=== PATIENT | male | born 1960 | race Caucasian/White ===

== ENCOUNTER 2019-02-19 16:34 | Emergency (ER) | payer SELFPAY ==
[~2019-02-19] VITALS: Ht 190.5 cm; Wt 91.6 kg
[2019-02-19 16:39] VITALS: BP 110/68
[2019-02-19 18:25] VITALS: BP 121/80
== END 2019-02-19 18:25 | disposition home or self-care (01) ==
LOC: MED 16:34
DX: T40.1X1A Poisoning by heroin, accidental (unintentional), initial encounter (principal); Y92.89 Other specified places as the place of occurrence of the external cause
CPT/HCPCS: 99283

== ENCOUNTER 2019-05-22 13:00 | Emergency (ER) | payer MEDICAID ==
[~2019-05-22] VITALS: Ht 190.5 cm; Wt 86.2 kg
[2019-05-22 13:05] VITALS: BP 128/103
--- NOTE | 2019-05-22 13:05 | NUR ---
dr lara at bedside
--- NOTE | 2019-05-22 13:06 | NUR ---
BIBA C/O HEROIN OVERDOSE X TODAY. PER EMS, PT WAS FOUND IN ALLEY, ALERT AND AWAKE. PT ADMITS TO TAKING UNKNOWN AMOUNT OF HEROIN AT APPROX 1200. AT THIS TIME, PT BREATHING SPONTANEOUSLY, LUNGS DIMINISHED. GCS 15. PT DIAPHORETIC AND TACHY AT 124. 85% RA. PT STARTED ON 4 L NC. NOW AT 96%. PT ANSWERING QUESTIONS APPROPRIATELY, CALM IN BEHAVIOR. NO COMPLAINS OF SOB, CP, DIZZINESS OR PAIN IN GENERAL. PATIENT STATES HE WAS JUST RELEASED FROM RETIREMENT THIS AM
--- NOTE | 2019-05-22 13:07 | NUR ---
NEURO INTACT- PUPILS PERRL. 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 SPEECH CLEAR AND FULL. GCS 15. AMBULATORY.
[2019-05-22] MEDS ORDERED: NACL 0.9% 1,000 ML IV ONE (13:10)
[2019-05-22] MEDS ORDERED: ALBUTEROL SULFATE/IPRATROPIU 3 ML SOL IH ONE (13:10)
--- NOTE | 2019-05-22 13:15 | NUR ---
rt at bedside for breathing tx
--- NOTE | 2019-05-22 13:20 | NUR ---
iv inserted and labs drawn bedside
--- NOTE | 2019-05-22 13:22 | NUR ---
emt at bedside for ekg
[2019-05-22 13:25] LABS: BASOPHILS % (AUTO) 0.3 % (0.0-2.0); EOSINOPHILS % (AUTO) 0.2 % (0.0-4.0); HEMATOCRIT 45.2 % (36-52); HEMOGLOBIN 15.2 g/dL (12.0-18.0); LYMPHOCYTES # (AUTO) 2.3 K/uL (2.0-11.5); LYMPHOCYTES % (AUTO) 24.8 % (20.5-51.1); MEAN CORPUSCULAR HEMOGLOBIN 31 pg (27-31); MEAN CORPUSCULAR HGB CONC 34 g/dL (33-37); MEAN CORPUSCULAR VOLUME 92.5 fL (80-94); MONOCYTES # (AUTO) 0.6 K/uL (0.8-1.0); MONOCYTES % (AUTO) 6.1 % (1.7-9.3); NEUTROPHILS # (AUTO) 6.4 K/uL (1.8-7.7); NEUTROPHILS % (AUTO) 68.6 % (42.2-75.2); PLATELET COUNT (AUTO) 260 K/uL (140-450); RED BLOOD CELL COUNT(AUTO) 4.89 MIL/uL (4.20-6.10); RED CELL DISTRIBUTION WIDTH 13.8 % (11.6-13.7); WHITE BLOOD COUNT (AUTO) 9.3 K/uL (4.8-10.8)
--- NOTE | 2019-05-22 13:32 | NUR ---
XRAY AT BEDSIDE
--- NOTE | 2019-05-22 13:38 | NUR ---
CALLED POISON CONTROL AND GAVE REPORT, SHE SUGGESTED TO OBTAIN URINE DRUG SCREEN, MONITOR VS, ATUL ROE WILL GIVE PT SUBSTANCE ABUSE HOTLINE [phone]
--- NOTE | 2019-05-22 13:40 | NUR ---
PT REMOVED IV LINE, CATHETER INTACT. BLEEDING CONTROLLED.
--- NOTE | 2019-05-22 13:45 | NUR ---
PT EXPRESSING DESIRE TO LEAVE. INFORMED PT OF RISKS OF LEAVING AMA. PT STILL INSITING, STATING "I'M FINE I KNOW MYSELF I DO THIS A LOT I'M OKAY" DR ZEPEDA MADE AWARE.
--- NOTE | 2019-05-22 13:52 | NUR ---
SPOKE TO PT WITH DR ZEPEDA, PT STILL EXPRESSING DESIRE TO LEAVE. ALERT TO NAME, BIRTHDAY, PLACE, AND EVENT.
[2019-05-22 14:00] LABS: ANION GAP 12.6 (8-16); CARBON DIOXIDE 29.5 mmol/L (21-32); CREATININE 1.3 mg/dL (0.7-1.3); POTASSIUM 4.1 mmol/L (3.5-5.1)
[2019-05-22 14:03] VITALS: BP 128/103
--- NOTE | 2019-05-22 14:03 | NUR ---
Patient does not wish to proceed with medical care recommended by DR ZEPEDA. Patient given information related to possible complications, up to and including , which could occur as a result of leaving hospital at this time. Patient verbalizes understanding of risks involved leaving against medical advice. Patient has signed AMA form.
== END 2019-05-22 14:03 | disposition left against medical advice (07) ==
LOC: MED 13:00
DX: T40.1X1A Poisoning by heroin, accidental (unintentional), initial encounter (principal); R09.02 Hypoxemia; R00.0 Tachycardia, unspecified; F17.210 Nicotine dependence, cigarettes, uncomplicated; Y92.9 Unspecified place or not applicable
CPT/HCPCS: 36415; 71045; 80048; 84484; 85025; 93005; 94640; 96360; 99284; J7620; Q0092